=== PATIENT | female | born 1960 | race Caucasian/White ===

== ENCOUNTER 2017-08-13 17:57 | Inpatient (IN) | payer MEDICAID ==
[2017-08-13 18:03] VITALS: BMI 43.7
[2017-08-13 18:21] LABS: BASO # 0.1 K/uL (0.0-0.2); EOS # 0.2 K/uL (0.0-0.7); EOS % 1.6 % (0.0-4.0); HEMOGLOBIN 14.2 g/dL (11.0-16.0); LYMPH # 2.9 K/uL (1.0-4.3); LYMPH % 30.4 % (20.0-40.0); MEAN CELL VOLUME 88.1 fL (81.0-99.0); MEAN CORPUSCULAR HEMOGLOBIN 29.9 pg (27.0-31.0); MEAN PLATELET VOLUME 8.2 fL (7.2-11.7); MONO # 0.6 K/uL (0.0-0.8); MONO % 6.7 % (0.0-10.0); NEUT # 5.8 K/uL (1.8-7.0); NEUT % 60.3 % (50.0-75.0); NRBC % 0.1 % (0.0-2.0); RBC 4.75 Mil/uL (3.80-5.20); RED CELL DISTRIBUTION WIDTH 14.8 % (11.5-14.5); WHITE BLOOD COUNT 9.7 K/uL (4.8-10.8)
[2017-08-13 18:29] LABS: INR 0.9; PROTHROMBIN TIME 10.4 SECONDS (9.7-12.2)
[2017-08-13] MEDS ORDERED: Labetalol 25mg/5ml Syringe IVP STA (18:33)
--- NOTE | 2017-08-13 18:35 | C.PDOC ---
History Of Present Illness 57 year old female presents to the ED for evaluation after being referred by her PMD. Patient was being evaluated by her PMD for right shoulder pain when she suddenly became anxious, confused and disoriented in the office. Patient's daughter, who is at bedside, states patient has been appearing anxious, confused , and has been having difficulty with her words. Patient denies numbness/ weakness and has no other complaints at this time. PMD. Juanis Watson Time Seen by Provider: 08/13/17 18:32 Chief Complaint (Nursing): Weakness/Neurological Deficit History Per: Patient, Family History/Exam Limitations: no limitations Current Symptoms Are (Timing): Still Present Past Medical History Reviewed: Historical Data, Nursing Documentation, Vital Signs Vital Signs: Last Vital Signs Temp 97.4 F L 08/13/17 21:11 Pulse 74 08/13/17 22:00 Resp 20 08/13/17 21:11 BP 144/83 08/13/17 21:11 Pulse Ox 99 08/13/17 23:15 - Medical History PMH: Asthma, COPD, Emphysema, HTN, TIA Surgical History: Cholecystectomy Family History: States: Unknown Family Hx - Social History Hx Alcohol Use: No Hx Substance Use: No - Immunization History Hx Tetanus Toxoid Vaccination: No Hx Influenza Vaccination: Yes Hx Pneumococcal Vaccination: No Review Of Systems Neurological: Positive for: Change in Speech (difficulty with words ), Confusion , Other (disoriented) Psych: Positive for: Anxiety Physical Exam - Physical Exam Appears: Non-toxic, No Acute Distress, Other (obese ) Skin: Normal Color, Warm, Dry Head: Atraumatic, Normacephalic Eye(s): bilateral: Normal Inspection Oral Mucosa: Moist Neck: Supple Chest: Symmetrical, No Deformity, No Tenderness Cardiovascular: Rhythm Regular, No Murmur Respiratory: Normal Breath Sounds, No Rales, No Rhonchi, No Wheezing Extremity: Normal ROM, Capillary Refill (less than 2 seconds ) Neurological/Psych: Oriented x3, Other (mild difficulty forming words ) ED Course And Treatment - Laboratory Results Result Diagrams: 08/13/17 18:14 08/13/17 18:49 Lab Interpretation: Normal ECG: Interpreted By Me ECG Rhythm: Sinus Rhythm ECG Interpretation: Normal Rate From EC O2 Sat by Pulse Oximetry: 99 (on RA) Pulse Ox Interpretation: Normal - Radiology CXR: Interpreted by Me CXR Interpretation: Yes: No Acute Disease - CT Scan/US CT BRain and CTA neck/Brain Other Rad Studies (CT/US): Radiology Report Reviewed (normal) Progress Note: Bloodwork, UA, CXR, EKG, CT Head, CTA Head/Neck ordered and reviewed. Case discussed with Dr. Evans, who asks for patient to be observed and have a neurology consult in the morning. initially hypertensive SBP 220's which resolved spontaneously after CT's. been baseline normal neuro throughout ED eval. ? Migraine- L sided headache with some word-finding difficulties? Obs for Neuro eval and MRI Reevaluation Time: 19:36 Reassessment Condition: Improved - Physician Consult Information Outcome Of Conversation: [phone] to Dr. Flynn for Dr Evans's pt's NIHSS Stroke Scale 2 - Date/Time Evaluation Performed Date Performed: 08/13/17 Time Performed: 18:00 When Was NIHSS Performed: Code Stroke - How Severe is the Stroke Level of Consciousness: 0=Alert LOC to Questions: 0=Both comments correct LOC to commands: 0=Obeys both correctly Best Gaze: 0=Normal Visual: 0=No visual loss Facial: 0=Normal Motor Arm - Left: NA - Amputation, joint fusion Motor Leg - Left: 0=No drift Motor Leg - Right: 0=No drift Limb Ataxia: 0=Absent Sensory: 0=Normal Best Language: 1=Mild to moderate aphasia Extinction & Inattention (Neglect): 0=Normal, no object rTPA Inclusion/Exclusion - Refusal of Treatment Patient Refused Treatment: No - Inclusion Criteria for Altepase Patient is 18 years or Older: Yes The Clinical Diagnosis of Ischemic Stroke That is Causing a Potentially Disabling Neurological Deficit: No Time of Onset is Well Established to be Less Than 270 Minute Before Treatment Would Begin: No - Exclusion Criteria for Altepase Uncontrolled Hypertension at Time of Treatment (Systolic BP above 185 or Diastolic BP above 110 mmHg): Yes Known Bleeding Diathesis Including but Not Limited to: Platelets Below 100,000/ mm,PTT Above 40 sec After Heparin Use, Current Use of Oral Anitcoagulant With INR Greater Than 1.7 or PT Greater Than 15 secs: No Evidence of an Intracranial Hemorrhage: No Evidence of Major Acute Infarct With Signs Greater Than 1/3 MCA Territory: No Suspicion of Subarachnoid Hemorrhage on Pretreatment Evaluation Even if CT Head Negative For Hemorrhage: No Disposition Doctor Will See Patient In The: Hospital Counseled Patient/Family Regarding: Studies Performed, Diagnosis - Disposition Disposition: HOSPITALIZED Disposition Time: 19:45 Condition: GOOD - Clinical Impression Clinical Impression: Weakness of limb, Dizziness, Change in mental status - Scribe Statement The provider has reviewed the documentation as recorded by the Scribe (Kia Montero) Provider Attestation: All medical record entries made by the Scribe were at my direction and personally dictated by me. I have reviewed the chart and agree that the record accurately reflects my personal performance of the history, physical exam, medical decision making, and the department course for this patient. I have also personally directed, reviewed, and agree with the discharge instructions and disposition.
--- NOTE | 2017-08-13 18:37 | CT ---
PROCEDURE: CT HEAD WITHOUT CONTRAST. HISTORY: Code Stroke COMPARISON: None available. TECHNIQUE: Axial computed tomography images were obtained through the head/brain without intravenous contrast. Radiation dose: Total exam DLP = 806.53 mGy-cm. This CT exam was performed using one or more of the following dose reduction techniques: Automated exposure control, adjustment of the mA and/or kV according to patient size, and/or use of iterative reconstruction technique. FINDINGS: HEMORRHAGE: No intracranial hemorrhage. BRAIN: No mass effect or edema. Minimal age-appropriate atrophy. No evidence of acute infarct. VENTRICLES: Unremarkable. No hydrocephalus. CALVARIUM: Unremarkable. PARANASAL SINUSES: Unremarkable as visualized. No significant inflammatory changes. MASTOID AIR CELLS: Unremarkable as visualized. No inflammatory changes. OTHER FINDINGS: None. IMPRESSION: No evidence of acute infarct. No intracranial mass or hemorrhage. The findings in this examination were discussed by telephone with Dr. Houston at 6:32 p.m. on 08/13/2017.
[2017-08-13 19:04] LABS: ALBUMIN 3.8 g/dL (3.5-5.0); CALCIUM 8.6 mg/dl (8.6-10.4); GFR AFRICAN-AMERICAN > 60; GFR NON-AFRICAN AMERICAN 57; HDL CHOLESTEROL 31 mg/dL (30-70)
[2017-08-13 19:05] LABS: ALT/SGPT 15 U/L (9-52); AST/SGOT 24 U/L (14-36); BLOOD UREA NITROGEN 18 mg/dL (7-17)
[2017-08-13] MEDS ORDERED: Iohexol 350mg/ml 100 ML ONE (19:08)
[2017-08-13 19:15] LABS: LDL CHOLESTEROL 127 mg/dL (0-129)
--- NOTE | 2017-08-13 19:57 | CP.PCM.HP ---
<Odilon Howardsssummer Cruz - Last Filed: 08/13/17 22:28> History of Present Illness - History of Present Illness History of Present Illness: CC: "Dizzy" HPI: 57 year old female with past medical history as noted below presents to the ER for dizziness. Patient states she was at her PMD's office today for her neck and shoulder pain when she went to stand up she felt like the room was spinning. She states she felt unsteady on her feet and had to sit down. She states she felt like she was going to pass out and the feeling lasted for 30 minutes. She states she has never felt this before. She states she had a headache which was located in the front and felt like a throbbing pain. She denies nausea, vomiting, change in vision; blurry vision; chest pain, shortness of breath, diarrhea, constipation, start of new medications, recent travel or sick contacts. PMD: Dr. 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 Past Surgical History: Cardiac Cath a few years ago; tubal ligation; left eyebrow cyst removed; cholecystectomy Medications:amlodipine besylate 5mg daily; cyclobenzaprin hcl 10mg hs; gabapentin 100mg daily; spiriva daily; Ventolin HFA 2 puffs q4prn Allergies: Sulfur - swelling; Penicillin - swelling Social History: lives alone (with dog); works as a homemaker; smoker for almost 40 years about 1 pack every 3 days; denies illicit drug use; social drinker Present on Admission - Present on Admission Any Indicators Present on Admission: Yes History of DVT/PE: Yes Review of Systems - Constitutional Constitutional: Headache. absent: Chills, Fever - EENT Eyes: absent: Blurred Vision, Change in Vision Ears: Disequilibrium, Dizziness - Cardiovascular Cardiovascular: Lightheadedness. absent: Chest Pain, Dyspnea, Leg Edema, Palpitations - Respiratory Respiratory: absent: Dyspnea - Gastrointestinal Gastrointestinal: absent: Constipation, Diarrhea, Nausea, Vomiting - Genitourinary Genitourinary: absent: Dysuria - Musculoskeletal Musculoskeletal: Arthralgias, Back Pain - Neurological Neurological: Disequilibrium, Dizziness, Headaches, Syncope. absent: Abnormal Speech, Confusion, Frequent Falls, Loss of Vision, Tingling Past Patient History - Past Social History Smoking Status: Never Smoked - CARDIAC Hx Hypertension: Yes - PULMONARY Hx Asthma: Yes Hx Chronic Obstructive Pulmonary Disease (COPD): Yes Hx Emphysema: Yes - NEUROLOGICAL Hx Transient Ischemic Attacks (TIA): Yes - MUSCULOSKELETAL/RHEUMATOLOGICAL Hx Osteoarthritis: Yes - PSYCHIATRIC Hx Substance Use: No - SURGICAL HISTORY Hx Cholecystectomy: Yes Meds Allergies/Adverse Reactions: Allergies Allergy/AdvReac Type Severity Reaction Status Date / Time sulfur dioxide Allergy Verified 08/13/17 18:06 Physical Exam - Constitutional Appears: No Acute Distress - Head Exam Head Exam: ATRAUMATIC, NORMAL INSPECTION - Eye Exam Eye Exam: EOMI, Normal appearance, PERRL Pupil Exam: NORMAL ACCOMODATION - ENT Exam ENT Exam: Mucous Membranes Moist - Respiratory Exam Respiratory Exam: Clear to Auscultation Bilateral, NORMAL BREATHING PATTERN. absent: Rales, Rhonchi, Wheezes, Stridor - Cardiovascular Exam Cardiovascular Exam: REGULAR RHYTHM, RRR, +S1, +S2 - GI/Abdominal Exam GI & Abdominal Exam: Normal Bowel Sounds, Soft. absent: Tenderness - Extremities Exam Extremities exam: Positive for: normal capillary refill, normal inspection, pedal pulses present. Negative for: full ROM (Right upper extremity decreased ROM due to chronic shoulder pain ), pedal edema, tenderness - Neurological Exam Neurological exam: Alert, CN II-XII Intact, Oriented x3 Additional comments: When patient was asked to stand and close eyes - patient did sway and felt dizzy after - Expanded Neurological Exam Expanded Patient oriented to: person, place, time Cerebellar Function: Finger to Nose: Normal, Heel to Pike: Normal, Romberg: Normal Sensory exam: Lower Extremity Light Touch: Normal, Upper Extremity Light Touch: Normal Neuro motor strength exam: Left Upper Extremity: 5, Right Upper Extremity: 5, Left Lower Extremity: 5, Right Lower Extremity: 5 Coma Scale Eye Opening: SPONTANEOUS Coma Scale Motor Response: OBEYS COMMANDS Coma Scale Verbal: Oriented Coma Scale Total: 15 - Psychiatric Exam Psychiatric exam: Normal Affect, Normal Mood - Skin Skin Exam: Dry, Intact, Normal Color Results - Vital Signs Recent Vital Signs: Last Vital Signs Temp 97.8 F 08/13/17 18:03 Pulse 82 08/13/17 19:09 Resp 14 08/13/17 19:09 BP 141/84 08/13/17 19:09 Pulse Ox 99 08/13/17 19:52 - Labs Result Diagrams: 08/13/17 18:14 08/13/17 18:49 Labs: Laboratory Results - last 24 hr 08/13/17 08/13/17 08/13/17 18:04 18:14 18:14 WBC 9.7 RBC 4.75 Hgb 14.2 Hct 41.8 MCV 88.1 MCH 29.9 MCHC 34.0 RDW 14.8 H Plt Count 306 MPV 8.2 Neut % (Auto) 60.3 Lymph % (Auto) 30.4 [place] % (Auto) 6.7 Eos % (Auto) 1.6 Baso % (Auto) 1.0 Neut # (Auto) 5.8 Lymph # (Auto) 2.9 [place] # (Auto) 0.6 Eos # (Auto) 0.2 Baso # (Auto) 0.1 PT 10.4 INR 0.9 APTT 36 H Sodium Potassium Chloride Carbon Dioxide Anion Gap BUN Creatinine Est GFR ( Amer) Est GFR (Non-Af Amer) POC Glucose (mg/dL) 99 Random Glucose Hemoglobin A1c Calcium Total Bilirubin AST ALT Alkaline Phosphatase Troponin I Total Protein Albumin Globulin Albumin/Globulin Ratio Triglycerides Cholesterol LDL Cholesterol Direct HDL Cholesterol Blood Type Antibody Screen 08/13/17 08/13/17 08/13/17 18:17 18:40 18:49 WBC RBC Hgb Hct MCV MCH MCHC RDW Plt Count MPV Neut % (Auto) Lymph % (Auto) [place] % (Auto) Eos % (Auto) Baso % (Auto) Neut # (Auto) Lymph # (Auto) [place] # (Auto) Eos # (Auto) Baso # (Auto) PT INR APTT Sodium 136 Potassium 4.2 Chloride 101 Carbon Dioxide 24 Anion Gap 15 BUN 18 H Creatinine 1.0 Est GFR ( Amer) > 60 Est GFR (Non-Af Amer) 57 POC Glucose (mg/dL) Random Glucose 90 Hemoglobin A1c 6.6 H Calcium 8.6 Total Bilirubin 0.5 AST 24 ALT 15 Alkaline Phosphatase 135 H Troponin I < 0.0120 Total Protein 7.5 Albumin 3.8 Globulin 3.7 Albumin/Globulin Ratio 1.0 Triglycerides 151 H Cholesterol 180 LDL Cholesterol Direct 127 HDL Cholesterol 31 Blood Type A POSITIVE Antibody Screen Negative Assessment & Plan - Assessment and Plan (Free Text) Assessment: 1.) Dizziness - Head CT: no evidence of acute infarct. No intracranial mass or hemorhage. - f/u official report head/neck CTA - f/u MRI of brain in the AM - Neuro Consult: Dr. Verduzco --> help appreciated - NIHSS: 0 2.) History of stroke/Penaloza's palsy on the left 3.) History of COPD - f/u chest x-ray - Continue home medications: * Ventolin * Spiriva 4.) History of Chronic Back/Shoulder pain - Continue home medication * Gabapentin 100mg daily * Cyclobenzaprin 10mg HS 5.) History of HTN - Continue home medication * Amlodipine 5mg daily 6.) History of DVT (1988) - Unknown cause patient states she was on a blood thinner for 6 months 7.) Prophylaxis - Pepcid 20mg daily - Heparin SC q8h - SCDs Case discussed with Dr. Rina Howard PGY-1 <Patrick Flynn P - Last Filed: 08/13/17 23:13> Results - Vital Signs Recent Vital Signs: Last Vital Signs Temp 97.4 F L 08/13/17 21:11 Pulse 74 08/13/17 22:00 Resp 20 08/13/17 21:11 BP 144/83 08/13/17 21:11 Pulse Ox 99 08/13/17 21:26 - Labs Result Diagrams: 08/13/17 18:14 08/13/17 18:49 Labs: Laboratory Results - last 24 hr 08/13/17 08/13/17 08/13/17 18:04 18:14 18:14 WBC 9.7 RBC 4.75 Hgb 14.2 Hct 41.8 MCV 88.1 MCH 29.9 MCHC 34.0 RDW 14.8 H Plt Count 306 MPV 8.2 Neut % (Auto) 60.3 Lymph % (Auto) 30.4 [place] % (Auto) 6.7 Eos % (Auto) 1.6 Baso % (Auto) 1.0 Neut # (Auto) 5.8 Lymph # (Auto) 2.9 [place] # (Auto) 0.6 Eos # (Auto) 0.2 Baso # (Auto) 0.1 PT 10.4 INR 0.9 APTT 36 H Sodium Potassium Chloride Carbon Dioxide Anion Gap BUN Creatinine Est GFR ( Amer) Est GFR (Non-Af Amer) POC Glucose (mg/dL) 99 Random Glucose Hemoglobin A1c Calcium Total Bilirubin AST ALT Alkaline Phosphatase Troponin I Total Protein Albumin Globulin Albumin/Globulin Ratio Triglycerides Cholesterol LDL Cholesterol Direct HDL Cholesterol Blood Type Antibody Screen 08/13/17 08/13/17 08/13/17 18:17 18:40 18:49 WBC RBC Hgb Hct MCV MCH MCHC RDW Plt Count MPV Neut % (Auto) Lymph % (Auto) [place] % (Auto) Eos % (Auto) Baso % (Auto) Neut # (Auto) Lymph # (Auto) [place] # (Auto) Eos # (Auto) Baso # (Auto) PT INR APTT Sodium 136 Potassium 4.2 Chloride 101 Carbon Dioxide 24 Anion Gap 15 BUN 18 H Creatinine 1.0 Est GFR ( Amer) > 60 Est GFR (Non-Af Amer) 57 POC Glucose (mg/dL) Random Glucose 90 Hemoglobin A1c 6.6 H Calcium 8.6 Total Bilirubin 0.5 AST 24 ALT 15 Alkaline Phosphatase 135 H Troponin I < 0.0120 Total Protein 7.5 Albumin 3.8 Globulin 3.7 Albumin/Globulin Ratio 1.0 Triglycerides 151 H Cholesterol 180 LDL Cholesterol Direct 127 HDL Cholesterol 31 Blood Type A POSITIVE Antibody Screen Negative Attending/Attestation - Attestation I have personally seen and examined this patient.: Yes I have fully participated in the care of the patient.: Yes I have reviewed all pertinent clinical information: Yes Notes (Text): 08/13/17 23:10 Transient episode of vertigo, frontal headache, for about 1 hr, then resolved. Chronic cervical and lumbar OA with chronic shoulder pain, right lumbar radicuolopathy, right frozen shoulder, deconditioning. Tobacco abuse H/o htn H/o DVT in Plan Observe Counselled about tobacco cessation Counselled about out patient need of PT/OT MRI in am GI/DVT prophylaxis See orders for detail.
[2017-08-13] MEDS ORDERED: Albuterol HFA 90 mcg/actuation (8 g) INH PRN (20:31)
[2017-08-13 21:12] VITALS: RESP 20
[2017-08-14 07:18] LABS: BASO % 0.6 % (0.0-2.0); EOS # 0.1 K/uL (0.0-0.7); EOS % 1.9 % (0.0-4.0); HEMOGLOBIN 13.7 g/dL (11.0-16.0); LYMPH % 29.2 % (20.0-40.0); MEAN CELL VOLUME 87.8 fL (81.0-99.0); MEAN CORPUSCULAR HEMOGLOBIN 30.3 pg (27.0-31.0); MEAN CORPUSCULAR HGB CONC 34.5 g/dL (33.0-37.0); MEAN PLATELET VOLUME 8.3 fL (7.2-11.7); MONO # 0.4 K/uL (0.0-0.8); MONO % 5.7 % (0.0-10.0); NEUT # 4.2 K/uL (1.8-7.0); NEUT % 62.6 % (50.0-75.0); NRBC % 0.1 % (0.0-2.0); RBC 4.52 Mil/uL (3.80-5.20); RED CELL DISTRIBUTION WIDTH 14.7 % (11.5-14.5); WHITE BLOOD COUNT 6.8 K/uL (4.8-10.8)
[2017-08-14 07:40] LABS: ALBUMIN 3.5 g/dL (3.5-5.0); ALT/SGPT 21 U/L (9-52); AST/SGOT 19 U/L (14-36); BLOOD UREA NITROGEN 15 mg/dL (7-17); CALCIUM 8.6 mg/dl (8.6-10.4); GFR AFRICAN-AMERICAN > 60; GFR NON-AFRICAN AMERICAN 57
[2017-08-14] MEDS: Tiotropium 18 mcg Cap For Inhalation INH SCH (07:48)
--- NOTE | 2017-08-14 07:48 | CP.PCM.PN ---
<Arabella Livingston - Last Filed: 08/14/17 14:48> Subjective - Date & Time of Evaluation Date of Evaluation: 08/14/17 Time of Evaluation: 07:49 - Subjective Subjective: Progress Note for Dr. Sanon Patient seen and examined at bedside. Patient states she is dizzy. Patient said the first time she's ever felt that way was yesterday when she want to Dr. Evans's office to evaluate her right shoulder decreased range of motion. Patient denies fever, chills, cough nausea, vomiting, diarrhea. Patient states she has constipation and dizziness. Objective - Vital Signs/Intake and Output Vital Signs (last 24 hours): Temp Pulse Resp BP Pulse Ox 97.8 F 62 20 112/73 96 08/14/17 04:00 08/14/17 04:00 08/14/17 04:00 08/14/17 04:00 08/13/17 23:35 Intake and Output: 08/14/17 08/14/17 06:59 18:59 Intake Total 10 Balance 10 - Medications Medications: Current Medications Albuterol (Ventolin Hfa 90 Mcg/Actuation (8 G)) 2 puff INH RQ4 PRN PRN Reason: Shortness of Breath Amlodipine Besylate (Norvasc) 5 mg PO DAILY [facility] Aspirin (Aspirin Chewable) 81 mg PO DAILY [facility] Cyclobenzaprine HCl (Flexeril) 10 mg PO HS [facility] Last Admin: 08/13/17 21:52 Dose: 10 mg Famotidine (Pepcid) 20 mg PO DAILY [facility] Gabapentin (Neurontin) 100 mg PO TID [facility] Heparin Sodium (Porcine) (Heparin) 5,000 units SC Q8 [facility] Last Admin: 08/14/17 05:41 Dose: 5,000 units Rosuvastatin Calcium (Crestor) 10 mg PO HS [facility] Tiotropium [place] (Spiriva) 18 mcg INH RQ24 [facility] - Labs Labs: 08/14/17 07:05 08/14/17 07:05 PT 10.4 SECONDS (9.7-12.2) 08/13/17 18:14 INR 0.9 08/13/17 18:14 APTT 36 SECONDS (21-34) H 08/13/17 18:14 - Additional Findings Additional findings: Constitutional Appears: No Acute Distress - Head Exam Head Exam: ATRAUMATIC, NORMAL INSPECTION - Eye Exam Eye Exam: EOMI, Normal appearance, PERRL Pupil Exam: NORMAL ACCOMODATION - ENT Exam ENT Exam: Mucous Membranes Moist - Respiratory Exam Respiratory Exam: Clear to Auscultation Bilateral, NORMAL BREATHING PATTERN. absent: Rales, Rhonchi, Wheezes, Stridor - Cardiovascular Exam Cardiovascular Exam: REGULAR RHYTHM, RRR, +S1, +S2 - GI/Abdominal Exam GI & Abdominal Exam: Normal Bowel Sounds, Soft. absent: Tenderness - Extremities Exam Extremities exam: Positive for: normal capillary refill, normal inspection, pedal pulses present. Negative for: full ROM (Right upper extremity decreased ROM due to chronic shoulder pain ), pedal edema, tenderness - Neurological Exam Neurological exam: Alert, CN II-XII Intact, Oriented x3 Assessment and Plan - Assessment and Plan (Free Text) Assessment: 1.) Dizziness - Head CT: no evidence of acute infarct. No intracranial mass or hemorrhage. - CTA head/neck: portions of aortic arch are well opacified with minimal calcified plaque along left lateral and inferior survaced of transverse portion of aortic arch. minor calcified plaque seen at the origin of the left subclavian artery. common carotid arteries are widely patent. minor calcified plaque changes seen along left posterior and right. medial margins of carotid bifurcations with no evidence of occlusion or significant stenosis. Vertebral arterieis are patent without evidence of occlusion or significant stenosis. Major branches of [place] are patent with some asymmetry of A1 segmenets which are slightly alrger and more dominant than right which may indicate anatomic variation. no evidence of large aneurysm nor vascular malformation. - f/u MRI of brain in the AM - Neuro Consult: Dr. Verduzco - NIHSS: 0 2.) History of stroke/Penaloza's palsy on the left 3.) History of COPD - f/u chest x-ray - Continue home medications: * Ventolin * Spiriva 4.) History of Chronic Back/Shoulder pain - Continue home medication * Gabapentin 100mg daily * Cyclobenzaprin 10mg HS 5.) History of HTN - Continue home medication * Amlodipine 5mg daily 6.) History of DVT (1988) - Unknown cause patient states she was on a blood thinner for 6 months 7.) Prophylaxis - Pepcid 20mg daily - Heparin SC q8h - SCDs <Blu Sanon - Last Filed: 08/14/17 15:49> Objective - Vital Signs/Intake and Output Vital Signs (last 24 hours): Temp Pulse Resp BP Pulse Ox 98.1 F 68 20 106/66 95 08/14/17 08:42 08/14/17 08:42 08/14/17 08:42 08/14/17 08:42 08/14/17 08:42 Intake and Output: 08/14/17 08/14/17 06:59 18:59 Intake Total 10 Balance 10 - Medications Medications: Current Medications Albuterol (Ventolin Hfa 90 Mcg/Actuation (8 G)) 2 puff INH RQ4 PRN PRN Reason: Shortness of Breath Amlodipine Besylate (Norvasc) 5 mg PO DAILY [facility] Last Admin: 08/14/17 12:10 Dose: 5 mg Aspirin (Aspirin Chewable) 81 mg PO DAILY [facility] Last Admin: 08/14/17 12:08 Dose: 81 mg Cyclobenzaprine HCl (Flexeril) 10 mg PO HS [facility] Last Admin: 08/13/17 21:52 Dose: 10 mg Famotidine (Pepcid) 20 mg PO DAILY [facility] Last Admin: 08/14/17 12:08 Dose: 20 mg Gabapentin (Neurontin) 100 mg PO TID [facility] Last Admin: 08/14/17 14:15 Dose: 100 mg Heparin Sodium (Porcine) (Heparin) 5,000 units SC Q8 [facility] Last Admin: 08/14/17 14:15 Dose: 5,000 units Rosuvastatin Calcium (Crestor) 10 mg PO HS [facility] Tiotropium [place] (Spiriva) 18 mcg INH RQ24 [facility] - Labs Labs: 08/14/17 07:05 08/14/17 07:05 PT 10.4 SECONDS (9.7-12.2) 08/13/17 18:14 INR 0.9 08/13/17 18:14 APTT 36 SECONDS (21-34) H 08/13/17 18:14 Attending/Attestation - Attestation I have personally seen and examined this patient.: Yes I have fully participated in the care of the patient.: Yes I have reviewed all pertinent clinical information, including history, physical exam and plan: Yes Notes (Text): 08/14/17 15:40 Medical attending: Patient was seen and examined by me. Agree with the above note by the resident The patient was NOT in any acute distress when we saw her. She has very long standing, chronic pain, however she was able to ambulate very slowly. She reported feeling at her baseline self. As mentioned previously she underwent MRI, CTA of head and neck - both of which were stable. We are currently pending on the echo as well as carotid dopplers at the moment. If the echo is ok and she does not have orthostatic numbers then we can let her go. I told her this. thank you Blu Sanon
[2017-08-14 08:05] LABS: SQUAMOUS EPITHIAL 5 /hpf (0-5); URINE BACTERIA RARE (<OCC); URINE BILIRUBIN NEGATIVE (NEGATIVE); URINE BLOOD NEGATIVE (NEGATIVE); URINE CLARITY Hazy (Clear); URINE COLOR Yellow (YELLOW); URINE GLUCOSE (UA) NORMAL (Normal); URINE LEUKOCYTE ESTERASE 2+ Leu/uL (Negative); URINE PROTEIN NEGATIVE (NEGATIVE); URINE UROBILINOGEN NORMAL mg/dL (0.2-1.0)
--- NOTE | 2017-08-14 08:23 | RAD ---
Chest x-ray single frontal view History: Code stroke. Comparison: None available. Findings: Mild venous congestion. Right hilar prominence. Mild patchy increased markings at the lung bases. More confluent increased markings at the right lung base may represent mild atelectasis versus subtle infiltrate. Mammilated right hemidiaphragm. Heart size within normal limits. Calcification at the aortic knob. Degenerative changes in the spine and shoulders. Impression: Mild venous congestion. Right hilar prominence. Mild patchy increased markings at the lung bases. More confluent increased markings at the right lung base may represent mild atelectasis versus subtle infiltrate. Mammilated right hemidiaphragm.
[2017-08-14 09:02] LABS: FOLATE 11.6 ng/mL
--- NOTE | 2017-08-14 10:36 | CT ---
PROCEDURE: CTA at brain neck dated 08/14/2017. HISTORY: Code stroke COMPARISON: Comparison made with prior CT scan brain earlier same day. TECHNIQUE: Contiguous helical/transaxial images of the neck were obtained from the level of the skull-base to the superior mediastinum in the arteriographic phase of enhancement. Coronal and sagittal reformats or also generated. IV contrast dose: Radiation Dose - DLP: 707.41 mGy-cm This CT exam was performed using one or more of the following dose reduction techniques: Automated exposure control, adjustment of the mA and/or kV according to patient size, and/or use of iterative reconstruction technique FINDINGS: The visualized portions of the aortic arch are well opacified with only minimal calcified plaque along the left lateral and inferior surfaces of the transverse portion of the aortic arch. Minor calcified plaque seen at the origin of the left subclavian artery. The common carotid arteries are widely patent. Minor calcified plaque changes seen along the left posterior and right the medial margins of the carotid bifurcations with no evidence of occlusion or significant stenosis. The remaining visualized distal internal carotid arteries including the petrous cavernous and carotid segments widely patent. Some minimal calcified plaque change seen at along both cavernous carotid arteries again with no significant stenosis. The vertebral arteries are patent throughout without evidence of occlusion or significant stenosis. There is asymmetry of the vertebral arteries left-sided which is larger in caliber more dominant than the right. The visualized major branches of the [place] of [place] are also patent though there is some asymmetry of the A1 segments left-sided which is slightly larger in caliber/more dominant than the right felt to represent an anatomic variation. The visualized distal anterior middle and post cerebral arteries appear relatively symmetric. No evidence of large aneurysm nor vascular malformation IMPRESSION: No evidence of occlusion or significant stenosis despite some minor plaque changes at the origins of the left subclavian artery, both carotid bifurcations and both cavernous carotid arteries as above.
--- NOTE | 2017-08-14 10:46 | CP.PCM.CON ---
History of Present Illness - History of Present Illness History of Present Illness: 57 y rold woman who became suddenly dizzy at her PMD's office and and when she stood up, felt like room spinning, and almost passed out. It was accompanied with a headache, frontal in nature, 9/10, with no hemiplegia or photophobia. She denies nausea, vomiting, change in vision. 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 Denies head trauma or mva, or new medications. PMD: Dr. 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 Past Surgical History: Cardiac Cath a few years ago; tubal ligation; left eyebrow cyst removed; cholecystectomy Medications:amlodipine besylate 5mg daily; cyclobenzaprin hcl 10mg hs; gabapentin 100mg daily; spiriva daily; Ventolin HFA 2 puffs q4prn Allergies: Sulfur - swelling; Penicillin - swelling Social History: lives alone (with dog); works as a homemaker; smoker for almost 40 years about 1 pack every 3 days; denies illicit drug use; social drinker On exam: Normal neurological examination. Past Patient History - Past Medical History & Family History Past Medical History?: Yes - Past Social History Smoking Status: Never Smoked - CARDIAC Hx Hypertension: Yes - PULMONARY Hx Asthma: Yes Hx Chronic Obstructive Pulmonary Disease (COPD): Yes Hx Emphysema: Yes - NEUROLOGICAL Hx Transient Ischemic Attacks (TIA): Yes - HEENT Hx HEENT Problems: No - RENAL Hx Kidney Stones: Yes - ENDOCRINE/METABOLIC Hx Endocrine Disorders: No - HEMATOLOGICAL/ONCOLOGICAL Hx Blood Disorders: No - INTEGUMENTARY Hx Dermatological Problems: No - MUSCULOSKELETAL/RHEUMATOLOGICAL Hx Osteoarthritis: Yes - GENITOURINARY/GYNECOLOGICAL Hx Genitourinary Disorders: No - PSYCHIATRIC Hx Substance Use: No - SURGICAL HISTORY Hx Cholecystectomy: Yes - ANESTHESIA Hx Anesthesia: Yes Hx Anesthesia Reactions: No Hx Malignant Hyperthermia: No Meds Allergies/Adverse Reactions: Allergies Allergy/AdvReac Type Severity Reaction Status Date / Time sulfur dioxide Allergy Verified 08/13/17 18:06 - Medications Medications: Current Medications Albuterol (Ventolin Hfa 90 Mcg/Actuation (8 G)) 2 puff INH RQ4 PRN PRN Reason: Shortness of Breath Amlodipine Besylate (Norvasc) 5 mg PO DAILY COUNTS [facility]CLUDE 234 BEDS AT THE [facility] Aspirin (Aspirin Chewable) 81 mg PO DAILY COUNTS INCLUDE 234 BEDS AT THE [facility] Cyclobenzaprine HCl (Flexeril) 10 mg PO HS COUNTS INCLUDE 234 BEDS AT THE [facility] Last Admin: 08/13/17 21:52 Dose: 10 mg Famotidine (Pepcid) 20 mg PO DAILY COUNTS INCLUDE 234 BEDS AT THE [facility] Gabapentin (Neurontin) 100 mg PO TID COUNTS INCLUDE 234 BEDS AT THE [facility] Heparin Sodium (Porcine) (Heparin) 5,000 units SC Q8 COUNTS INCLUDE 234 BEDS AT THE [facility] Last Admin: 08/14/17 05:41 Dose: 5,000 units Rosuvastatin Calcium (Crestor) 10 mg PO HS COUNTS INCLUDE 234 BEDS AT THE [facility] Tiotropium [place] (Spiriva) 18 mcg INH RQ24 COUNTS INCLUDE 234 BEDS AT THE [facility] Results - Vital Signs Recent Vital Signs: Last Vital Signs Temp 98.1 F 08/14/17 08:42 Pulse 68 08/14/17 08:42 Resp 20 08/14/17 08:42 BP 106/66 08/14/17 08:42 Pulse Ox 95 08/14/17 08:42 - Labs Result Diagrams: 08/14/17 07:05 08/14/17 07:05 Labs: Laboratory Results - last 24 hr 08/13/17 08/13/17 08/13/17 18:04 18:14 18:14 WBC 9.7 RBC 4.75 Hgb 14.2 Hct 41.8 MCV 88.1 MCH 29.9 MCHC 34.0 RDW 14.8 H Plt Count 306 MPV 8.2 Neut % (Auto) 60.3 Lymph % (Auto) 30.4 [place] % (Auto) 6.7 Eos % (Auto) 1.6 Baso % (Auto) 1.0 Neut # (Auto) 5.8 Lymph # (Auto) 2.9 [place] # (Auto) 0.6 Eos # (Auto) 0.2 Baso # (Auto) 0.1 PT 10.4 INR 0.9 APTT 36 H Sodium Potassium Chloride Carbon Dioxide Anion Gap BUN Creatinine Est GFR ( Amer) Est GFR (Non-Af Amer) POC Glucose (mg/dL) 99 Random Glucose Hemoglobin A1c Calcium Phosphorus Magnesium Total Bilirubin AST ALT Alkaline Phosphatase Troponin I Total Protein Albumin Globulin Albumin/Globulin Ratio Triglycerides Cholesterol LDL Cholesterol Direct HDL Cholesterol Vitamin B12 25-OH Vitamin D Total Folate Urine Color Urine Clarity Urine pH Ur Specific [place] Urine Protein Urine Glucose (UA) Urine Ketones Urine Blood Urine Nitrate Urine Bilirubin Urine Urobilinogen Ur Leukocyte Esterase Urine WBC (Auto) Urine RBC (Auto) Ur Squamous Epith Cells Urine Bacteria Urine Trichomonas Blood Type Antibody Screen 08/13/17 08/13/17 08/13/17 18:17 18:40 18:49 WBC RBC Hgb Hct MCV MCH MCHC RDW Plt Count MPV Neut % (Auto) Lymph % (Auto) [place] % (Auto) Eos % (Auto) Baso % (Auto) Neut # (Auto) Lymph # (Auto) [place] # (Auto) Eos # (Auto) Baso # (Auto) PT INR APTT Sodium 136 Potassium 4.2 Chloride 101 Carbon Dioxide 24 Anion Gap 15 BUN 18 H Creatinine 1.0 Est GFR ( Amer) > 60 Est GFR (Non-Af Amer) 57 POC Glucose (mg/dL) Random Glucose 90 Hemoglobin A1c 6.6 H Calcium 8.6 Phosphorus Magnesium Total Bilirubin 0.5 AST 24 ALT 15 Alkaline Phosphatase 135 H Troponin I < 0.0120 Total Protein 7.5 Albumin 3.8 Globulin 3.7 Albumin/Globulin Ratio 1.0 Triglycerides 151 H Cholesterol 180 LDL Cholesterol Direct 127 HDL Cholesterol 31 Vitamin B12 25-OH Vitamin D Total Folate Urine Color Urine Clarity Urine pH Ur Specific [place] Urine Protein Urine Glucose (UA) Urine Ketones Urine Blood Urine Nitrate Urine Bilirubin Urine Urobilinogen Ur Leukocyte Esterase Urine WBC (Auto) Urine RBC (Auto) Ur Squamous Epith Cells Urine Bacteria Urine Trichomonas Blood Type A POSITIVE Antibody Screen Negative 08/14/17 08/14/17 08/14/17 06:39 07:05 07:05 WBC 6.8 RBC 4.52 Hgb 13.7 Hct 39.7 MCV 87.8 MCH 30.3 MCHC 34.5 RDW 14.7 H Plt Count 249 MPV 8.3 Neut % (Auto) 62.6 Lymph % (Auto) 29.2 [place] % (Auto) 5.7 Eos % (Auto) 1.9 Baso % (Auto) 0.6 Neut # (Auto) 4.2 Lymph # (Auto) 2.0 [place] # (Auto) 0.4 Eos # (Auto) 0.1 Baso # (Auto) 0.0 PT INR APTT Sodium 144 Potassium 4.0 Chloride 104 Carbon Dioxide 25 Anion Gap 18 BUN 15 Creatinine 1.0 Est GFR ( Amer) > 60 Est GFR (Non-Af Amer) 57 POC Glucose (mg/dL) 94 Random Glucose 100 Hemoglobin A1c Calcium 8.6 Phosphorus 4.5 Magnesium 2.0 Total Bilirubin 0.4 AST 19 ALT 21 Alkaline Phosphatase 156 H Troponin I Total Protein 7.1 Albumin 3.5 Globulin 3.5 Albumin/Globulin Ratio 1.0 Triglycerides Cholesterol LDL Cholesterol Direct HDL Cholesterol Vitamin B12 25-OH Vitamin D Total Folate Urine Color Urine Clarity Urine pH Ur Specific [place] Urine Protein Urine Glucose (UA) Urine Ketones Urine Blood Urine Nitrate Urine Bilirubin Urine Urobilinogen Ur Leukocyte Esterase Urine WBC (Auto) Urine RBC (Auto) Ur Squamous Epith Cells Urine Bacteria Urine Trichomonas Blood Type Antibody Screen 08/14/17 08/14/17 08/14/17 07:05 07:05 07:20 WBC RBC Hgb Hct MCV MCH MCHC RDW Plt Count MPV Neut % (Auto) Lymph % (Auto) [place] % (Auto) Eos % (Auto) Baso % (Auto) Neut # (Auto) Lymph # (Auto) [place] # (Auto) Eos # (Auto) Baso # (Auto) PT INR APTT Sodium Potassium Chloride Carbon Dioxide Anion Gap BUN Creatinine Est GFR ( Amer) Est GFR (Non-Af Amer) POC Glucose (mg/dL) Random Glucose Hemoglobin A1c Calcium Phosphorus Magnesium Total Bilirubin AST ALT Alkaline Phosphatase Troponin I Total Protein Albumin Globulin Albumin/Globulin Ratio Triglycerides Cholesterol LDL Cholesterol Direct HDL Cholesterol Vitamin B12 787 25-OH Vitamin D Total 17.3 L Folate 11.6 Urine Color Yellow Urine Clarity Hazy Urine pH 5.0 Ur Specific [place] 1.018 Urine Protein Negative Urine Glucose (UA) Normal Urine Ketones Negative Urine Blood Negative Urine Nitrate Negative Urine Bilirubin Negative Urine Urobilinogen Normal Ur Leukocyte Esterase 2+ H Urine WBC (Auto) 8 H Urine RBC (Auto) 4 H Ur Squamous Epith Cells 5 Urine Bacteria Rare Urine Trichomonas Rare H Blood Type Antibody Screen - Imaging and Cardiology CT scan - head Status: Image reviewed by me, Report reviewed by me Assessment & Plan - Assessment and Plan (Free Text) Assessment: 57 yr old woman with dizziness, who does not have any signs of stroke, but most likely has cervicalgia and possible atherosclerosis secondary to her long history of smoking and obesity. Plan: 1. start aspirin 2. CTA official read 3. MRi C spine outpatient basis. Thank you for this interesting consult. MD Betty, DPN
--- NOTE | 2017-08-14 13:18 | MRI ---
PROCEDURE: MRI of the brain dated 08/14/2017 HISTORY: Dizziness. Lightheadedness. COMPARISON: Comparison made with prior CT scan and CTA brain both dated 08/13/2017 TECHNIQUE: Multiplanar, multisequence MR images of the brain were obtained without intravenous contrast enhancement. FINDINGS: HEMORRHAGE: No acute parenchymal, subarachnoid or extra-axial hemorrhage. No evidence of hemosiderin deposition seen on gradient echo weighted sequences. DWI: No evidence of an acute or early subacute infarction seen on diffusion imaging. . BRAIN PARENCHYMA: There appears to be some very minor slightly confluent prolonged T2 signal changes in the periventricular white matter with a few scattered tiny focal areas of increased T2 signal scattered about frontal subcortical white matter nonspecific. Changes may represent minimal chronic sequela of small vessel disease. Differential diagnosis would include sequela of migraine headaches, or old trauma or post infectious/ inflammatory etiologies. Clinical correlation recommended. Mild generalized volume loss. VENTRICLES: No obstructive hydrocephalus. . CRANIUM: Unremarkable. ORBITS: Grossly unremarkable. PARANASAL SINUSES/MASTOIDS: Clear VASCULAR SYSTEM: Visualized major vascular flow voids at skull base patent. OTHER FINDINGS: None. IMPRESSION: No acute intracranial hemorrhage. Suspect minimal chronic periventricular white matter ischemic changes as detailed above. Mild generalized volume loss.
[2017-08-15 00:51] VITALS: O2SAT 95
--- NOTE | 2017-08-15 06:53 | CP.PCM.PN ---
Subjective - Date & Time of Evaluation Date of Evaluation: 08/15/17 Time of Evaluation: 06:51 - Subjective Subjective: Ms. Boles was seen and examined at the bedside. She is alert, oriented in all spheres. She denies any dizziness, headache, lightheadedness, nausea, or vomiting.She is able to follow simple commands. MRI of the brain showed no acute intracranial hemorrhage. Suspect minimal chronic periventricular white matter ischemic changes. Mild generalized volume loss. CTA of the head and neck showed no evidence of occlusion or significant stenosis despite some minor plaque changes at the origins of the left subclavian artery both carotid bifurcations and both cavernous carotid arteries.There was no untoward events overnight. Objective - Vital Signs/Intake and Output Vital Signs (last 24 hours): Temp Pulse Resp BP Pulse Ox 97.6 F 74 20 112/68 95 08/14/17 23:25 08/15/17 04:21 08/14/17 23:25 08/14/17 23:25 08/14/17 23:25 Intake and Output: 08/14/17 08/15/17 18:59 06:59 Intake Total 80 Balance 80 - Medications Medications: Current Medications Albuterol (Ventolin Hfa 90 Mcg/Actuation (8 G)) 2 puff INH RQ4 PRN PRN Reason: Shortness of Breath Amlodipine Besylate (Norvasc) 5 mg PO DAILY [facility] Last Admin: 08/14/17 12:10 Dose: 5 mg Aspirin (Aspirin Chewable) 81 mg PO DAILY [facility] Last Admin: 08/14/17 12:08 Dose: 81 mg Cyclobenzaprine HCl (Flexeril) 10 mg PO [facility] Last Admin: 08/14/17 21:19 Dose: 10 mg Famotidine (Pepcid) 20 mg PO DAILY [facility] Last Admin: 08/14/17 12:08 Dose: 20 mg Gabapentin (Neurontin) 100 mg PO TID [facility] Last Admin: 08/14/17 19:52 Dose: 100 mg Heparin Sodium (Porcine) (Heparin) 5,000 units SC Q8 [facility] Last Admin: 08/15/17 05:19 Dose: 5,000 units Nicotine (Nicoderm Cq) 1 patch TD Q24H [facility] Last Admin: 08/14/17 21:20 Dose: 1 patch Rosuvastatin Calcium (Crestor) 10 mg PO HS [facility] Last Admin: 08/14/17 21:19 Dose: 10 mg Tiotropium [place] (Spiriva) 18 mcg INH RQ24 [facility] - Labs Labs: 08/14/17 07:05 08/14/17 07:05 PT 10.4 SECONDS (9.7-12.2) 08/13/17 18:14 INR 0.9 08/13/17 18:14 APTT 36 SECONDS (21-34) H 08/13/17 18:14 - Constitutional Appears: No Acute Distress - Head Exam Head Exam: NORMAL INSPECTION - Neurological Exam Neurological Exam: Alert, Awake, Oriented x3 Neuro motor strength exam: Left Upper Extremity: 5, Right Upper Extremity: 5, Left Lower Extremity: 5, Right Lower Extremity: 5 Additional comments: She is alert, oriented x3, follows simple commands. Sensation intact. Assessment and Plan (1) Dizziness Assessment & Plan: Case discussed with Dr. Llanos, continue all current medical regimen. Pending echocardiogram result. If echocardiogram is normal, may discharge patient to home. Recommend MRi C spine outpatient basis and follow up with Dr. Llanos at [address] [place] [address] [address] [facility] [address]. Tel. [phone]. Status: Acute
--- NOTE | 2017-08-15 07:41 | CP.PCM.PN ---
Subjective - Date & Time of Evaluation Date of Evaluation: 08/15/17 Time of Evaluation: 07:40 - Subjective Subjective: Progress Note for Dr. Sanon Patient seen and examined at bedside. Patient had no complaints at this time. Patient states she felt a little anxious at night and was given nicotine patch. Patient states she only smokes 4-6 cigarettes a day, but used to smoke more. Objective - Vital Signs/Intake and Output Vital Signs (last 24 hours): Temp Pulse Resp BP Pulse Ox 97.6 F 74 20 112/68 95 08/14/17 23:25 08/15/17 04:21 08/14/17 23:25 08/14/17 23:25 08/14/17 23:25 Intake and Output: 08/15/17 08/15/17 06:59 18:59 Intake Total 80 Balance 80 - Medications Medications: Current Medications Albuterol (Ventolin Hfa 90 Mcg/Actuation (8 G)) 2 puff INH RQ4 PRN PRN Reason: Shortness of Breath Amlodipine Besylate (Norvasc) 5 mg PO DAILY [facility] Last Admin: 08/14/17 12:10 Dose: 5 mg Aspirin (Aspirin Chewable) 81 mg PO DAILY [facility] Last Admin: 08/14/17 12:08 Dose: 81 mg Cyclobenzaprine HCl (Flexeril) 10 mg PO HS [facility] Last Admin: 08/14/17 21:19 Dose: 10 mg Famotidine (Pepcid) 20 mg PO DAILY [facility] Last Admin: 08/14/17 12:08 Dose: 20 mg Gabapentin (Neurontin) 100 mg PO TID [facility] Last Admin: 08/14/17 19:52 Dose: 100 mg Heparin Sodium (Porcine) (Heparin) 5,000 units SC Q8 [facility] Last Admin: 08/15/17 05:19 Dose: 5,000 units Nicotine (Nicoderm Cq) 1 patch TD Q24H [facility] Last Admin: 08/14/17 21:20 Dose: 1 patch Rosuvastatin Calcium (Crestor) 10 mg PO HS [facility] Last Admin: 08/14/17 21:19 Dose: 10 mg Tiotropium [place] (Spiriva) 18 mcg INH RQ24 [facility] - Labs Labs: 08/14/17 07:05 08/14/17 07:05 PT 10.4 SECONDS (9.7-12.2) 08/13/17 18:14 INR 0.9 08/13/17 18:14 APTT 36 SECONDS (21-34) H 08/13/17 18:14 - Additional Findings Additional findings: Constitutional Appears: No Acute Distress - Head Exam Head Exam: ATRAUMATIC, NORMAL INSPECTION - Eye Exam Eye Exam: EOMI, Normal appearance, PERRL Pupil Exam: NORMAL ACCOMODATION - ENT Exam ENT Exam: Mucous Membranes Moist - Respiratory Exam Respiratory Exam: Clear to Auscultation Bilateral, NORMAL BREATHING PATTERN. absent: Rales, Rhonchi, Wheezes, Stridor - Cardiovascular Exam Cardiovascular Exam: REGULAR RHYTHM, RRR, +S1, +S2 - GI/Abdominal Exam GI & Abdominal Exam: Normal Bowel Sounds, Soft. absent: Tenderness - Extremities Exam Extremities exam: Positive for: normal capillary refill, normal inspection, pedal pulses present. Negative for: full ROM (Right upper extremity decreased ROM due to chronic shoulder pain ), pedal edema, tenderness - Neurological Exam Neurological exam: Alert, CN II-XII Intact, Oriented x3 Assessment and Plan - Assessment and Plan (Free Text) Assessment: 1.) Dizziness - Head CT: no evidence of acute infarct. No intracranial mass or hemorrhage. - CTA head/neck: portions of aortic arch are well opacified with minimal calcified plaque along left lateral and inferior survaced of transverse portion of aortic arch. minor calcified plaque seen at the origin of the left subclavian artery. common carotid arteries are widely patent. minor calcified plaque changes seen along left posterior and right. medial margins of carotid bifurcations with no evidence of occlusion or significant stenosis. Vertebral arterieis are patent without evidence of occlusion or significant stenosis. Major branches of [place] are patent with some asymmetry of A1 segments which are slightly larger and more dominant than right which may indicate anatomic variation. no evidence of large aneurysm nor vascular malformation. MRI brain: no acute intracranial hemorrhage. minimal chronic periventricular white matter ischemic changes as detailed above. Mild generalized volume loss Echocardiogram: Per Dr. Llanos: Pending echocardiogram result. If echocardiogram is normal, may discharge patient to home. Recommend MRI C spine outpatient and follow up with Dr. Llanos at [address] [place] [address] [address] [facility] [address]. Tel. [phone]. orthostatics lyin/74 sittin/74 standin/71 - Neuro Consult: Dr. Llanos - NIHSS: 0 2.) History of stroke/Penaloza's palsy on the left 4.) History of COPD - Continue home medications: * Ventolin * Spiriva 5.) History of Chronic Back/Shoulder pain - Continue home medication * Gabapentin 100mg daily * Cyclobenzaprin 10mg HS 6.) History of HTN - Continue home medication * Amlodipine 5mg daily 7.) History of DVT (1988) - Unknown cause patient states she was on a blood thinner for 6 months 8.) Prophylaxis - Pepcid 20mg daily - Heparin SC q8h - SCDs
[2017-08-15] MEDS: Tiotropium 18 mcg Cap For Inhalation INH SCH (07:48)
--- NOTE | 2017-08-15 07:48 | CARD ---
APPROVED REPORT EXAM: Two-dimensional and M-mode echocardiogram with Doppler and color Doppler. Other Information Quality : GoodRhythm : NSR INDICATION Dizziness and Vertigo 2D DIMENSIONS Aortic Root (2D)2.5 (2.0-3.7cm)LVDd4.5 (3.9-5.9cm) LVDs3.4 (2.5-4.0cm)FS (%) 25.0 % LVEF (%)49.6 (>50%) M-Mode DIMENSIONS RVDd2.26 (2.1-3.2cm)Left Atrium (MM)3.82 (2.5-4.0cm) IVSd0.97 (0.7-1.1cm)Aortic Root2.43 (2.2-3.7cm) LVDd5.14 (4.0-5.6cm)Aortic Cusp Exc.1.94 (1.5-2.0cm) PWd1.15 (0.7-1.1cm)FS (%) 32 % LVDs3.47 (2.0-3.8cm)LVEF (%)60 (>50%) Aortic Valve AoV Peak Jegtowbb674.6cm/Ashley Peak GR.5mmHg Mitral Valve MV E Ybzrgmxq41.5cm/sMV A Jumptbvy63.9cm/sE/A ratio0.7 TDI E/Lateral E'0.0E/Medial E'0.0 Tricuspid Valve TR Peak [id number]/sTR Peak Gr.[id number] LEFT VENTRICLE The left ventricle is normal size. There is normal left ventricular wall thickness. Left ventricle systolic function is normal. The Ejection Fraction is 60-65%. There is normal LV segmental wall motion. Tissue Doppler imaging reveals abnormal left ventricular diastolic dysfunction. RIGHT VENTRICLE The right ventricle is normal size. There is normal right ventricular wall thickness. The right ventricular systolic function is normal. ATRIA The left atrium size is normal. The right atrium size is normal. The interatrial septum is intact with no evidence for an atrial septal defect. AORTIC VALVE The aortic valve is normal in structure. No aortic regurgitation is present. There is no aortic valvular stenosis. MITRAL VALVE The mitral valve is normal in structure. There is no evidence of mitral valve prolapse. There is no mitral valve stenosis. Mitral regurgitation is mild. TRICUSPID VALVE The tricuspid valve is normal in structure. There is mild tricuspid regurgitation. Right ventricular systolic pressure is estimated at 30 mmHg. There is mild pulmonary hypertension. PULMONIC VALVE The pulmonic valve is not well visualized. There is no pulmonic valvular regurgitation. GREAT VESSELS The aortic root is normal in size. PERICARDIAL EFFUSION There is no significant pericardial effusion. <Conclusion> Left ventricle systolic function is normal. The Ejection Fraction is 60-65%. Diastolic dysfunction. No aortic regurgitation is present. Mitral regurgitation is mild. There is mild tricuspid regurgitation. There is mild pulmonary hypertension. There is no pulmonic valvular regurgitation.
[2017-08-15 08:11] VITALS: PULSE 71
[2017-08-15 08:52] VITALS: BP 111/72; TEMP 97.7
[2017-08-15 11:30] LABS: BASO % 0.6 % (0.0-2.0); EOS # 0.1 K/uL (0.0-0.7); EOS % 1.9 % (0.0-4.0); HEMOGLOBIN 14.4 g/dL (11.0-16.0); LYMPH # 2.5 K/uL (1.0-4.3); MEAN CORPUSCULAR HEMOGLOBIN 29.8 pg (27.0-31.0); MEAN CORPUSCULAR HGB CONC 33.9 g/dL (33.0-37.0); MEAN PLATELET VOLUME 8.6 fL (7.2-11.7); MONO # 0.5 K/uL (0.0-0.8); MONO % 6.1 % (0.0-10.0); NEUT # 4.6 K/uL (1.8-7.0); NEUT % 59.4 % (50.0-75.0); RBC 4.83 Mil/uL (3.80-5.20); RED CELL DISTRIBUTION WIDTH 14.6 % (11.5-14.5); WHITE BLOOD COUNT 7.8 K/uL (4.8-10.8)
--- NOTE | 2017-08-15 11:51 | CP.PCM.DIS ---
<Diana Livingstonanda - Last Filed: 08/15/17 13:10> Provider - Provider Date of Admission: 08/13/17 19:50 Attending physician: Blu Sanon DO Consults: Dr. Llanos Time Spent in preparation of Discharge (in minutes): 35 Hospital Course - Lab Results Lab Results: Most Recent Lab Values WBC 7.8 K/uL (4.8-10.8) 08/15/17 11:15 RBC 4.83 Mil/uL (3.80-5.20) 08/15/17 11:15 Hgb 14.4 g/dL (11.0-16.0) 08/15/17 11:15 Hct 42.5 % (34.0-47.0) 08/15/17 11:15 MCV 88.0 fL (81.0-99.0) 08/15/17 11:15 MCH 29.8 pg (27.0-31.0) 08/15/17 11:15 MCHC 33.9 g/dL (33.0-37.0) 08/15/17 11:15 RDW 14.6 % (11.5-14.5) H 08/15/17 11:15 Plt Count 291 K/uL (130-400) 08/15/17 11:15 MPV 8.6 fL (7.2-11.7) 08/15/17 11:15 Neut % (Auto) 59.4 % (50.0-75.0) 08/15/17 11:15 Lymph % (Auto) 32.0 % (20.0-40.0) 08/15/17 11:15 Garrett % (Auto) 6.1 % (0.0-10.0) 08/15/17 11:15 Eos % (Auto) 1.9 % (0.0-4.0) 08/15/17 11:15 Baso % (Auto) 0.6 % (0.0-2.0) 08/15/17 11:15 Neut # (Auto) 4.6 K/uL (1.8-7.0) 08/15/17 11:15 Lymph # (Auto) 2.5 K/uL (1.0-4.3) 08/15/17 11:15 Garrett # (Auto) 0.5 K/uL (0.0-0.8) 08/15/17 11:15 Eos # (Auto) 0.1 K/uL (0.0-0.7) 08/15/17 11:15 Baso # (Auto) 0.0 K/uL (0.0-0.2) 08/15/17 11:15 PT 10.4 SECONDS (9.7-12.2) 08/13/17 18:14 INR 0.9 08/13/17 18:14 APTT 36 SECONDS (21-34) H 08/13/17 18:14 Sodium 144 mmol/L (132-148) 08/14/17 07:05 Potassium 4.0 mmol/L (3.6-5.2) 08/14/17 07:05 Chloride 104 mmol/L (98-107) 08/14/17 07:05 Carbon Dioxide 25 mmol/L (22-30) 08/14/17 07:05 Anion Gap 18 (10-20) 08/14/17 07:05 BUN 15 mg/dL (7-17) 08/14/17 07:05 Creatinine 1.0 mg/dL (0.7-1.2) 08/14/17 07:05 Est GFR ( Amer) > 60 08/14/17 07:05 Est GFR (Non-Af Amer) 57 08/14/17 07:05 POC Glucose (mg/dL) 113 mg/dL (65-110) H 08/15/17 06:53 Random Glucose 100 mg/dL (65-105) 08/14/17 07:05 Hemoglobin A1c 6.6 % (4.2-6.5) H 08/13/17 18:17 Calcium 8.6 mg/dl (8.6-10.4) 08/14/17 07:05 Phosphorus 4.5 mg/dL (2.5-4.5) 08/14/17 07:05 Magnesium 2.0 mg/dL (1.6-2.3) 08/14/17 07:05 Total Bilirubin 0.4 mg/dL (0.2-1.3) 08/14/17 07:05 AST 19 U/L (14-36) 08/14/17 07:05 ALT 21 U/L (9-52) 08/14/17 07:05 Alkaline Phosphatase 156 U/L (38-126) H 08/14/17 07:05 Troponin I < 0.0120 ng/mL (0.00-0.120) 08/13/17 18:49 Total Protein 7.1 g/dL (6.3-8.3) 08/14/17 07:05 Albumin 3.5 g/dL (3.5-5.0) 08/14/17 07:05 Globulin 3.5 gm/dL (2.2-3.9) 08/14/17 07:05 Albumin/Globulin Ratio 1.0 (1.0-2.1) 08/14/17 07:05 Triglycerides 151 mg/dL (0-149) H 08/13/17 18:49 Cholesterol 180 mg/dL (0-199) 08/13/17 18:49 LDL Cholesterol Direct 127 mg/dL (0-129) 08/13/17 18:49 HDL Cholesterol 31 mg/dL (30-70) 08/13/17 18:49 Vitamin B12 787 pg/mL (239-931) 08/14/17 07:05 25-OH Vitamin D Total 17.3 NG/ML (30.0-100.0) L 08/14/17 07:05 Folate 11.6 ng/mL 08/14/17 07:05 Urine Color Yellow (YELLOW) 08/14/17 07:20 Urine Clarity Hazy (Clear) 08/14/17 07:20 Urine pH 5.0 (5.0-8.0) 08/14/17 07:20 Ur Specific [place] 1.018 (1.003-1.030) 08/14/17 07:20 Urine Protein Negative mg/dL (NEGATIVE) 08/14/17 07:20 Urine Glucose (UA) Normal mg/dL (Normal) 08/14/17 07:20 Urine Ketones Negative mg/dL (NEGATIVE) 08/14/17 07:20 Urine Blood Negative (NEGATIVE) 08/14/17 07:20 Urine Nitrate Negative (NEGATIVE) 08/14/17 07:20 Urine Bilirubin Negative (NEGATIVE) 08/14/17 07:20 Urine Urobilinogen Normal mg/dL (0.2-1.0) 08/14/17 07:20 Ur Leukocyte Esterase 2+ Nickie/uL (Negative) H 08/14/17 07:20 Urine WBC (Auto) 8 /hpf (0-5) H 08/14/17 07:20 Urine RBC (Auto) 4 /hpf (0-3) H 08/14/17 07:20 Ur Squamous Epith Cells 5 /hpf (0-5) 08/14/17 07:20 Urine Bacteria Rare (<OCC) 08/14/17 07:20 Urine Trichomonas Rare /hpf (NONE) H 08/14/17 07:20 Blood Type A POSITIVE 08/13/17 18:40 Antibody Screen Negative 08/13/17 18:40 - Hospital Course Hospital Course: HPI: 57 year old female with past medical history as noted below presents to the ER for dizziness. Patient states she was at her PMD's office today for her neck and shoulder pain when she went to stand up she felt like the room was spinning. She states she felt unsteady on her feet and had to sit down. She states she felt like she was going to pass out and the feeling lasted for 30 minutes. She states she has never felt this before. She states she had a headache which was located in the front and felt like a throbbing pain. She denies nausea, vomiting, change in vision; blurry vision; chest pain, shortness of breath, diarrhea, constipation, start of new medications, recent travel or sick contacts. Patient was placed on home medication and put on ASA 81mg PO QD. Patient had multiple imaging studies ordered in ED and on the floor. Important imaging and studies during the time of hospital stay orthostatics lyin/74 sittin/74 standin/71 - Head CT: no evidence of acute infarct. No intracranial mass or hemorrhage. - CTA head/neck: portions of aortic arch are well opacified with minimal calcified plaque along left lateral and inferior survaced of transverse portion of aortic arch. minor calcified plaque seen at the origin of the left subclavian artery. common carotid arteries are widely patent. minor calcified plaque changes seen along left posterior and right. medial margins of carotid bifurcations with no evidence of occlusion or significant stenosis. Vertebral arterieis are patent without evidence of occlusion or significant stenosis. Major branches of [place] are patent with some asymmetry of A1 segments which are slightly larger and more dominant than right which may indicate anatomic variation. no evidence of large aneurysm nor vascular malformation. MRI brain: no acute intracranial hemorrhage. minimal chronic periventricular white matter ischemic changes as detailed above. Mild generalized volume loss Echocardiogram: Diastolic dysfunction. mild mitral regurge, tricuspid regurge and mild pulmonary htn Duplex of carotid arteries: f/u with primary care for final read. Patient is medically stable for discharge to follow up with PMD. Per Dr. Llanos: Pending echocardiogram result. If echocardiogram is normal, may discharge patient to home. Patient discharged to continue home medications, and ASA 81mg POQD this is a brief summary of patient's stay. Please see EMR for more information - Date & Time of H&P Date of H&P: 08/15/17 Time of H&P: 13:11 Discharge Exam - Head Exam Head Exam: NORMAL INSPECTION Discharge Plan - Discharge Medications Prescriptions: Aspirin [Aspirin Chewable] 81 mg PO DAILY 30 Days chew - Follow Up Plan Condition: GOOD Disposition: HOME/ ROUTINE Instructions: Heart Healthy Diet, Vertigo (a Type of Dizziness) (DC), Altered Mental Status (DC), Aspirin Additional Instructions: take aspirin 81mg PO QD by mouth. Recommend MRI C spine outpatient, referral per PMD follow up with Dr. Llanos at [address] [place] [address] [place] [address]. Tel. [phone]. follow up with pmd for further workup as necessary Referrals: Holli Llanos MD [Staff Provider] - <Blu Sanon - Last Filed: 08/15/17 16:11> Provider - Provider Date of Admission: 08/13/17 19:50 Attending physician: Blu Sanon, DO Hospital Course - Lab Results Lab Results: Most Recent Lab Values WBC 7.8 K/uL (4.8-10.8) 08/15/17 11:15 RBC 4.83 Mil/uL (3.80-5.20) 08/15/17 11:15 Hgb 14.4 g/dL (11.0-16.0) 08/15/17 11:15 Hct 42.5 % (34.0-47.0) 08/15/17 11:15 MCV 88.0 fL (81.0-99.0) 08/15/17 11:15 MCH 29.8 pg (27.0-31.0) 08/15/17 11:15 MCHC 33.9 g/dL (33.0-37.0) 08/15/17 11:15 RDW 14.6 % (11.5-14.5) H 08/15/17 11:15 Plt Count 291 K/uL (130-400) 08/15/17 11:15 MPV 8.6 fL (7.2-11.7) 08/15/17 11:15 Neut % (Auto) 59.4 % (50.0-75.0) 08/15/17 11:15 Lymph % (Auto) 32.0 % (20.0-40.0) 08/15/17 11:15 Garrett % (Auto) 6.1 % (0.0-10.0) 08/15/17 11:15 Eos % (Auto) 1.9 % (0.0-4.0) 08/15/17 11:15 Baso % (Auto) 0.6 % (0.0-2.0) 08/15/17 11:15 Neut # (Auto) 4.6 K/uL (1.8-7.0) 08/15/17 11:15 Lymph # (Auto) 2.5 K/uL (1.0-4.3) 08/15/17 11:15 Garrett # (Auto) 0.5 K/uL (0.0-0.8) 08/15/17 11:15 Eos # (Auto) 0.1 K/uL (0.0-0.7) 08/15/17 11:15 Baso # (Auto) 0.0 K/uL (0.0-0.2) 08/15/17 11:15 PT 10.4 SECONDS (9.7-12.2) 08/13/17 18:14 INR 0.9 08/13/17 18:14 APTT 36 SECONDS (21-34) H 08/13/17 18:14 Sodium 142 mmol/L (132-148) 08/15/17 11:15 Potassium 4.0 mmol/L (3.6-5.2) 08/15/17 11:15 Chloride 103 mmol/L (98-107) 08/15/17 11:15 Carbon Dioxide 25 mmol/L (22-30) 08/15/17 11:15 Anion Gap 18 (10-20) 08/15/17 11:15 BUN 15 mg/dL (7-17) 08/15/17 11:15 Creatinine 1.0 mg/dL (0.7-1.2) 08/15/17 11:15 Est GFR ( Amer) > 60 08/15/17 11:15 Est GFR (Non-Af Amer) 57 08/15/17 11:15 POC Glucose (mg/dL) 113 mg/dL (65-110) H 08/15/17 06:53 Random Glucose 67 mg/dL (65-105) 08/15/17 11:15 Hemoglobin A1c 6.6 % (4.2-6.5) H 08/13/17 18:17 Calcium 9.1 mg/dl (8.6-10.4) 08/15/17 11:15 Phosphorus 3.8 mg/dL (2.5-4.5) 08/15/17 11:15 Magnesium 2.1 mg/dL (1.6-2.3) 08/15/17 11:15 Total Bilirubin 0.4 mg/dL (0.2-1.3) 08/15/17 11:15 AST 24 U/L (14-36) 08/15/17 11:15 ALT 7 U/L (9-52) L D 08/15/17 11:15 Alkaline Phosphatase 175 U/L (38-126) H 08/15/17 11:15 Troponin I < 0.0120 ng/mL (0.00-0.120) 08/13/17 18:49 Total Protein 8.2 g/dL (6.3-8.3) 08/15/17 11:15 Albumin 4.1 g/dL (3.5-5.0) 08/15/17 11:15 Globulin 4.0 gm/dL (2.2-3.9) H 08/15/17 11:15 Albumin/Globulin Ratio 1.0 (1.0-2.1) 08/15/17 11:15 Triglycerides 151 mg/dL (0-149) H 08/13/17 18:49 Cholesterol 180 mg/dL (0-199) 08/13/17 18:49 LDL Cholesterol Direct 127 mg/dL (0-129) 08/13/17 18:49 HDL Cholesterol 31 mg/dL (30-70) 08/13/17 18:49 Vitamin B12 787 pg/mL (239-931) 08/14/17 07:05 25-OH Vitamin D Total 17.3 NG/ML (30.0-100.0) L 08/14/17 07:05 Folate 11.6 ng/mL 08/14/17 07:05 Urine Color Yellow (YELLOW) 08/14/17 07:20 Urine Clarity Hazy (Clear) 08/14/17 07:20 Urine pH 5.0 (5.0-8.0) 08/14/17 07:20 Ur Specific [place] 1.018 (1.003-1.030) 08/14/17 07:20 Urine Protein Negative mg/dL (NEGATIVE) 08/14/17 07:20 Urine Glucose (UA) Normal mg/dL (Normal) 08/14/17 07:20 Urine Ketones Negative mg/dL (NEGATIVE) 08/14/17 07:20 Urine Blood Negative (NEGATIVE) 08/14/17 07:20 Urine Nitrate Negative (NEGATIVE) 08/14/17 07:20 Urine Bilirubin Negative (NEGATIVE) 08/14/17 07:20 Urine Urobilinogen Normal mg/dL (0.2-1.0) 08/14/17 07:20 Ur Leukocyte Esterase 2+ Nickie/uL (Negative) H 08/14/17 07:20 Urine WBC (Auto) 8 /hpf (0-5) H 08/14/17 07:20 Urine RBC (Auto) 4 /hpf (0-3) H 08/14/17 07:20 Ur Squamous Epith Cells 5 /hpf (0-5) 08/14/17 07:20 Urine Bacteria Rare (<OCC) 08/14/17 07:20 Urine Trichomonas Rare /hpf (NONE) H 08/14/17 07:20 Blood Type A POSITIVE 08/13/17 18:40 Antibody Screen Negative 08/13/17 18:40 Attending/Attestation - Attestation I have personally seen and examined this patient.: Yes I have fully participated in the care of the patient.: Yes I have reviewed all pertinent clinical information, including history, physical exam and plan: Yes Notes (Text): 08/15/17 16:11 Medical attending: Patient was seen and examined by me, agrees the above note by the medical transport specialist. Patient did well overnight. She did not have any acute events or concerns. We checked some of her orthostatic numbers and these were fine. As previously mentioned she underwent an MRI, CAT scan of the head, CTA of the head and neck as well as the echo. These were stable. She was very eager to go home. So at this time were to discharge the patient home. I explained to her that she' s continued to follow-up with her primary care physician. thank you Blu Sanon
[2017-08-15 12:27] LABS: CALCIUM 9.1 mg/dl (8.6-10.4)
[2017-08-15 12:28] LABS: ALBUMIN 4.1 g/dL (3.5-5.0); ALT/SGPT 7 U/L (9-52); AST/SGOT 24 U/L (14-36); BLOOD UREA NITROGEN 15 mg/dL (7-17); GFR AFRICAN-AMERICAN > 60; GFR NON-AFRICAN AMERICAN 57
--- NOTE | 2017-08-16 10:43 | CARD ---
APPROVED REPORT EKG Measurement Heart [id number] <Conclusion> Normal sinus rhythm Nonspecific T wave abnormality Abnormal ECG
--- NOTE | 2017-08-16 19:20 | VASCLAB ---
PROCEDURE: HISTORY: evaluate syncope COMPARISON: None available. TECHNIQUE: Grayscale and duplex Doppler evaluation of the cervical carotid and vertebral arteries were performed. The common carotid, carotid bifurcations and cervical Internal Carotid Artery (ICA) and proximal External Carotid Artery (ECA) were evaluated. The vertebral arteries were evaluated for gross patency and flow direction. Report prepared by River Dozier, BS, RVT FINDINGS: RIGHT CAROTID ARTERIES: 1. Common Carotid Artery: No significant focal plaque formation of the right common carotid artery. Maximum Peak Systolic velocity: 85 cm/sec: End-diastolic velocity 21 cm/sec. 2. Carotid Bifurcation: plaque formation. Maximum Peak Systolic velocity: 66 cm/sec: End-diastolic velocity 19 cm/sec. 3. Internal Carotid Artery: Plaque description: 3.1. Proximal Segment: Peak systolic velocity 83 cm/sec: End-diastolic velocity 25 cm/sec - % stenosis 0-15% 3.2. Middle Segment: Peak systolic velocity 61 cm/sec: End-diastolic velocity 32 cm/sec - % stenosis 0-15% 3.3. Distal Segment: Peak systolic velocity 74 cm/sec: End-diastolic velocity 28 cm/sec - % stenosis 0-15% 4. External Carotid Artery: No significant focal plaque formation. Peak systolic velocity 67 cm/sec 5. ICA/CCA Ratio: 1.0 LEFT CAROTID ARTERIES: 1. Common Carotid Artery: No significant focal plaque formation of the left common carotid artery. Maximum Peak Systolic velocity: 72 cm/sec: End-diastolic velocity 24 cm/sec. 2. Carotid Bifurcation: plaque formation. Maximum Peak Systolic velocity: 61 cm/sec: End-diastolic velocity 22 cm/sec. 3. Internal Carotid Artery: Plaque description: 3.1. Proximal Segment: Peak systolic velocity 89 cm/sec: End-diastolic velocity 33 cm/sec - % stenosis 0-15% 3.2. Middle Segment: Peak systolic velocity 114 cm/sec: End-diastolic velocity 38 cm/sec - % stenosis 0-15% 3.3. Distal Segment: Peak systolic velocity 49 cm/sec: End-diastolic velocity 14 cm/sec - % stenosis 0-15% 4. External Carotid Artery: No significant focal plaque formation. Peak systolic velocity 94 cm/sec 5. ICA/CCA Ratio: 1.6 VERTEBRAL ARTERIES: 1. Right Vertebral Artery: The right vertebral artery flow direction is antegrade. 2. Left Vertebral Artery: The left vertebral artery flow direction is antegrade. OTHER FINDINGS: 1. Right Brachial Blood pressure: 144 mmHg. 2. Left Brachial Blood pressure: 140 mmHg. IMPRESSION: RIGHT: Duplex scan does not suggest hemodynamically significant stenosis of the right extracranial carotid arteries. LEFT: Duplex scan does not suggest hemodynamically significant stenosis of the left extracranial carotid arteries.
== END 2017-08-15 13:16 | disposition home or self-care (01) | DRG 65 ==
LOC: C.ER 17:57 → C.9E 19:50 → C.6T 19:50
PROVIDERS: ADMIT Hospitalist; ATTEND Hospitalist
DX: R42 Dizziness and giddiness (principal); J43.9 Emphysema, unspecified; G47.30 Sleep apnea, unspecified; F17.200 Nicotine dependence, unspecified, uncomplicated; G89.29 Other chronic pain; I10 Essential (primary) hypertension; K59.00 Constipation, unspecified; Z86.718 Personal history of other venous thrombosis and embolism; Z86.73 Personal history of transient ischemic attack (TIA), and cerebral infarction without residual deficits; I27.20 Pulmonary hypertension, unspecified; M54.2 Cervicalgia; E66.9 Obesity, unspecified; Z68.41 Body mass index [BMI] 40.0-44.9, adult

== ENCOUNTER 2017-10-22 20:46 | Emergency (ER) | payer MEDICAID ==
[2017-10-22 20:47] VITALS: BMI 43.7
[2017-10-22 21:56] LABS: BASO # 0.1 K/uL (0.0-0.2); EOS # 0.1 K/uL (0.0-0.7); EOS % 1.3 % (0.0-4.0); HEMOGLOBIN 13.2 g/dL (11.0-16.0); LYMPH # 2.2 K/uL (1.0-4.3); LYMPH % 19.4 % (20.0-40.0); MEAN CELL VOLUME 87.8 fL (81.0-99.0); MEAN CORPUSCULAR HEMOGLOBIN 29.2 pg (27.0-31.0); MEAN CORPUSCULAR HGB CONC 33.2 g/dL (33.0-37.0); MEAN PLATELET VOLUME 8.2 fL (7.2-11.7); MONO # 0.7 K/uL (0.0-0.8); MONO % 6.4 % (0.0-10.0); NEUT % 71.9 % (50.0-75.0); NRBC % 0.1 % (0.0-2.0); RBC 4.51 Mil/uL (3.80-5.20); WHITE BLOOD COUNT 11.2 K/uL (4.8-10.8)
[2017-10-22 22:04] LABS: PROTHROMBIN TIME 10.9 SECONDS (9.7-12.2)
[2017-10-22 22:11] LABS: ALB/GLOB RATIO 1.1 (1.0-2.1); ALBUMIN 3.9 g/dL (3.5-5.0); ALT/SGPT 17 U/L (9-52); AST/SGOT 22 U/L (14-36); BLOOD UREA NITROGEN 18 mg/dL (7-17); CALCIUM 8.8 mg/dl (8.6-10.4); GFR AFRICAN-AMERICAN > 60; GFR NON-AFRICAN AMERICAN 57
--- NOTE | 2017-10-22 23:41 | C.PDOC ---
History Of Present Illness Pt had a cardiac catheterization going through the right groin on October 17, 2017. She state that today discharge started coming out from the area. Time Seen by Provider: 10/22/17 21:14 Chief Complaint (Nursing): Abnormal Skin Integrity History Per: Patient, Family Onset/Duration Of Symptoms: Hrs (today) Current Symptoms Are (Timing): Still Present Location Of Injury: Right: Thigh Quality Of Symptoms: Painful, Draining Severity: Moderate Additional History Per: Prior Records Past Medical History Reviewed: Historical Data, Nursing Documentation, Vital Signs Vital Signs: Last Vital Signs Temp 98.6 F 10/22/17 21:00 Pulse 90 10/22/17 21:00 Resp 20 10/22/17 21:00 BP 116/78 10/22/17 21:00 Pulse Ox 98 10/22/17 23:44 - Medical History PMH: Asthma, COPD, Emphysema, HTN, Kidney Stones, TIA Surgical History: Cholecystectomy Family History: States: Unknown Family Hx - Social History Hx Alcohol Use: No Hx Substance Use: No - Immunization History Hx Tetanus Toxoid Vaccination: No Hx Influenza Vaccination: Yes Hx Pneumococcal Vaccination: No Review Of Systems Except As Marked, All Systems Reviewed And Found Negative. Constitutional: Negative for: Fever, Weakness Cardiovascular: Negative for: Chest Pain Respiratory: Negative for: Shortness of Breath Gastrointestinal: Negative for: Vomiting, Abdominal Pain Genitourinary: Negative for: Dysuria Musculoskeletal: Negative for: Neck Pain, Leg Pain Neurological: Negative for: Weakness, Numbness Physical Exam - Physical Exam Appears: Non-toxic, No Acute Distress Skin: Warm Head: Atraumatic Eye(s): bilateral: Normal Inspection, PERRL, EOMI Neck: Normal ROM, Supple Cardiovascular: Rhythm Regular Respiratory: Normal Breath Sounds, No Accessory Muscle Use Gastrointestinal/Abdominal: Soft, No Tenderness Back: No CVA Tenderness Extremity: Normal ROM, No Pedal Edema, No Calf Tenderness, Other (Yellowish discharge from right groin area with mild induration and erythema) Pulses: Right Dorsalis Pedis: Normal Neurological/Psych: Oriented x3, Normal Motor, Normal Sensation ED Course And Treatment - Laboratory Results Result Diagrams: 10/22/17 21:53 10/22/17 21:53 Lab Interpretation: No Acute Changes O2 Sat by Pulse Oximetry: 98 Pulse Ox Interpretation: Normal - CT Scan/US Right groin US Other Rad Studies (CT/US): Read By Radiologist, Radiology Report Reviewed CT/US Interpretation: IMPRESSION: 1. Tiny subcutaneous fluid collection in the area of pain. 2. There is soft tissue edema in the groin. 3. Otherwise negative examination Reassessment Condition: Improved Disposition Counseled Patient/Family Regarding: Studies Performed, Diagnosis, Need For Followup, Rx Given - Disposition Disposition: HOME/ ROUTINE Disposition Time: 23:44 Condition: STABLE Additional Instructions: Follow up with your doctor within 2-3 days for a wound check. Return to the ER if you develop fever, redness, swelling, worsening of symptoms or if you have any other concerns. Prescriptions: Clindamycin [Cleocin] 300 mg PO QID #40 cap Instructions: Boil (DC) Forms: [facility] ([place]) - Clinical Impression Clinical Impression: Abscess of right groin
[2017-10-23 00:28] VITALS: BP 134/87; PULSE 86; RESP 22; TEMP 97.5; O2SAT 95
--- NOTE | 2017-10-23 18:26 | US ---
PROCEDURE: Ultrasound soft tissue right inguinal HISTORY: Right groin pain/drainage s/p cardiac cath. COMPARISON: Not available TECHNIQUE: Targeted examination right inguinal region. FINDINGS: Very small irregular fluid collection identified, 0.5 x 1.8 x 2.3 cm. Likely hematoma/seroma, status post femoral catheter insertion. No evidence of arterial venous malformation. No other abnormality identified. IMPRESSION: Small fluid collection in right inguinal region. No additional abnormality.
== END 2017-10-23 00:23 | disposition home or self-care (01) ==
LOC: C.ER 20:46
DX: L02.214 Cutaneous abscess of groin (principal)